=== PATIENT | male | born 1970 | race Two or more races ===

== ENCOUNTER → 2019-08-26 | Outpatient (CLI) | payer OTHER ==
[2019-08-26 09:39] LABS: ALANINE AMINOTRANSFERASE 81 U/L (12-78); ANION GAP 3 mmol/L (5-15); CALCIUM 8.6 mg/dL (8.5-10.1); CHLORIDE 108 mmol/L (98-107); CHOLESTEROL, TOTAL 196 mg/dL (140-239); CREATININE 0.96 mg/dL (0.7-1.3); TRIGLYCERIDES 123 mg/dL (50-200); VLDL CHOLESTEROL 25 mg/dL (0-25)
[2019-08-26 09:42] LABS: ALKALINE PHOSPHATASE 57 U/L (45-117); BILIRUBIN,TOTAL 2.7 mg/dL (0.2-1.0); HDL CHOL % 25 % (26-37); HDL CHOLESTEROL (DIRECT) 49 mg/dL (40-60); LDL CHOLESTEROL,CALCULATED 122 mg/dL (54-169); LDL/HDL RATIO 2.5 (0.5-3.0); TOTAL PROTEIN 7.5 g/dL (6.4-8.2)
[2019-08-26 10:45] LABS: HEMOGLOBIN A1C 5.7 % (4.2-6.3)
== END | disposition home or self-care (01) ==
LOC: LAB 09:00
PROVIDERS: ATTEND Registered Nurse
DX: E78.5 Hyperlipidemia, unspecified (principal); R73.9 Hyperglycemia, unspecified; E80.6 Other disorders of bilirubin metabolism
CPT/HCPCS: 36415; 80053; 80061; 83036

== ENCOUNTER → 2020-10-12 | Outpatient (CLI) | payer OTHER ==
[2020-10-12 11:36] LABS: BASOPHILS % (AUTO) 1 % (0-1); EOSINOPHILS % (AUTO) 2 % (1-7); LYMPHOCYTES % (AUTO) 27 % (22-44); MEAN CORPUSCULAR HEMOGLOBIN 31.8 pg (27.5-34.5); MEAN CORPUSCULAR HGB CONC 35.1 g/dL (33.2-36.2); MEAN PLATELET VOLUME 8.8 fL (7.4-10.4); MONOCYTES % (AUTO) 6 % (2-9); NEUTROPHILS % (AUTO) 65 % (42-75); PLATELET COUNT 185 x10^3/uL (130-400); RED BLOOD COUNT 5.17 x10^6/uL (4.38-5.82); RED CELL DISTRIBUTION WIDTH 13.5 % (9.4-14.8)
[2020-10-12 11:38] LABS: MD NO
[2020-10-12 11:47] LABS: ALBUMIN 4.1 g/dL (3.4-5.0); CALCIUM 8.5 mg/dL (8.5-10.1)
[2020-10-12 11:50] LABS: MICROSCOPIC NOT IND
[2020-10-12 11:57] LABS: ALANINE AMINOTRANSFERASE 72 U/L (12-78); ALKALINE PHOSPHATASE 57 U/L (45-117); BILIRUBIN, DIRECT 0.4 mg/dL (0.1-0.2); BILIRUBIN,INDIRECT 1.8 mg/dL (0.0-2.0); BILIRUBIN,TOTAL 2.2 mg/dL (0.2-1.0); CHLORIDE 109 mmol/L (98-107); CHOL/HDL RATIO 3.8; CHOLESTEROL, TOTAL 192 mg/dL (140-239); CREATININE 0.99 mg/dL (0.7-1.3); HDL CHOL % 26 % (26-37); HDL CHOLESTEROL (DIRECT) 50 mg/dL (40-60); LDL CHOLESTEROL,CALCULATED 115 mg/dL (54-169); LDL/HDL RATIO 2.3 (0.5-3.0); TOTAL PROTEIN 7.5 g/dL (6.4-8.2); TRIGLYCERIDES 134 mg/dL (50-200); VLDL CHOLESTEROL 27 mg/dL (0-25)
[2020-10-12 12:13] LABS: ANION GAP 4 mmol/L (5-15)
== END | disposition home or self-care (01) ==
LOC: LAB 10:34
PROVIDERS: ATTEND Registered Nurse
DX: R30.0 Dysuria (principal); E80.6 Other disorders of bilirubin metabolism; R73.9 Hyperglycemia, unspecified; E78.5 Hyperlipidemia, unspecified; R39.12 Poor urinary stream
CPT/HCPCS: 36415; 80053; 80061; 81003; 82247; 82248; 83036; 84153; 85025; G0103